=== PATIENT | female | born 1995 | race Caucasian/White ===

== ENCOUNTER 2020-01-28 20:38 | Emergency (ER) | payer SELFPAY ==
[~2020-01-28] VITALS: Ht 172.7 cm; Wt 85.0 kg
[2020-01-28] MEDS ORDERED: DOXYCYCLINE HYCLATE 100 MG TABLET PO ONE (22:15)
[2020-01-28] MEDS ORDERED: ACETAMINOPHEN 500 MG TABLET PO ONE (22:15)
[2020-01-28] MEDS ORDERED: BACITRACIN 0.9 GM PACKET OINTMENT TP ONE (22:15)
[2020-01-28 22:49] VITALS: BP 130/77
== END 2020-01-28 23:10 | disposition home or self-care (01) ==
LOC: EMS 20:41
DX: L08.9 Local infection of the skin and subcutaneous tissue, unspecified (principal); L03.116 Cellulitis of left lower limb; F17.210 Nicotine dependence, cigarettes, uncomplicated; F12.90 Cannabis use, unspecified, uncomplicated
CPT/HCPCS: Z7502; Z7610